=== PATIENT | male | born 1935 | race Caucasian/White ===

== ENCOUNTER → 2016-08-17 | Outpatient (CLI) | payer MEDICARE | END | disposition home or self-care (01) | LOC: RAD 11:36 → EDSTATUS 12:00 | PROVIDERS: ATTEND Otolaryngology | DX: J32.0 Chronic maxillary sinusitis (principal); J01.00 Acute maxillary sinusitis, unspecified; J34.2 Deviated nasal septum; J33.0 Polyp of nasal cavity | CPT/HCPCS: 70486 ==

== ENCOUNTER 2016-09-25 08:09 | Day surgery (SDC) | payer MEDICARE ==
[2016-09-18 09:16] VITALS: BP 149/91
[~2016-09-25] VITALS: Ht 175.3 cm; Wt 65.5 kg
[~2016-09-25 08:09] MED LIST: APIX5TAB PO; ASCO10004 PO; CALC250T PO; CHOL500015 PO; CYAN1TAB29 PO; EPINEPHRINE TOPICAL SOLN 1 MG/ML, 30ML ONE; FENTANYL PF 250 MCG/5ML ONE; LIDOCAINE/PF 1%-EPI 1:200K, 30ML ONE; METO50TA82 PO; MIDAZOLAM 1 MG/ML, 2ML ONE; MULT-717 PO; OMEG-133 PO; TAMS0.4C2 PO
[2016-09-25] MEDS ORDERED: LACTATED RINGERS 1,000 ML IV SCH (08:40)
[2016-09-25] MEDS ORDERED: SUCCINYLCHOLINE 20 MG/ML, 10ML ONE ×2 (08:46)
[2016-09-25] MEDS ORDERED: GLYCOPYRROLATE 0.2MG/1ML ONE (08:46)
[2016-09-25] MEDS ORDERED: EPHEDRINE 50 MG/ML, 1ML ONE ×2 (08:46)
[2016-09-25] MEDS ORDERED: DEXAMETHASONE 4 MG/ML, 1ML ONE ×2 (08:46)
[2016-09-25] MEDS ORDERED: NEOSTIGMINE 1 MG/ML, 10ML ONE ×2 (08:46)
[2016-09-25] MEDS ORDERED: PROPOFOL 10 MG/ML, 20ML ONE ×2 (08:46)
[2016-09-25] MEDS ORDERED: PHENYLEPHRINE 10 MG/ML ONE ×2 (08:46)
[2016-09-25] MEDS ORDERED: ONDANSETRON 2MG/ML, 2ML ONE ×2 (08:46)
[2016-09-25] MEDS ORDERED: ROCURONIUM 10 MG/ML ONE ×2 (08:46)
[2016-09-25] MEDS ORDERED: LIDOCAINE 1%, 2ML SQ PRN (09:00)
[2016-09-25] MEDS ORDERED: hydrALAzine 20 MG/ML, 1ML IV PRN (10:00)
[2016-09-25] MEDS ORDERED: HYDROmorphone 1 MG/ML, 1ML IV PRN (10:00)
[2016-09-25] MEDS ORDERED: OXYcodone 5 MG/5 ML ORAL.SOL UDC PO PRN (10:00)
[2016-09-25] MEDS ORDERED: FENTANYL PF 100 MCG/2ML IV PRN (10:00)
[2016-09-25] MEDS ORDERED: LABETALOL 5MG/ML, 20ML IV PRN (10:00)
[2016-09-25] MEDS ORDERED: ALBUTEROL SULFATE 2.5 MG/3 ML NPPB PRN (10:00)
[2016-09-25] MEDS ORDERED: ACETAMINOPHEN 325 MG TABLET PO PRN (10:00)
[2016-09-25] MEDS ORDERED: ONDANSETRON 2MG/ML, 2ML IVPush PRN (10:00)
[2016-09-25] MEDS ORDERED: EPHEDRINE 50 MG/ML, 1ML IVPush PRN (10:00)
[2016-09-25] MEDS ORDERED: METOPROLOL 1 MG/ML, 5ML IV PRN (10:00)
[2016-09-25] MEDS ORDERED: PROMETHAZINE 25 MG/ML, 1ML IV PRN (10:00)
== END 2016-09-25 11:30 ==
LOC: OUT 08:09
PROVIDERS: ATTEND Otolaryngology
DX: J32.9 Chronic sinusitis, unspecified (principal); J33.8 Other polyp of sinus; J34.89 Other specified disorders of nose and nasal sinuses; I10 Essential (primary) hypertension
CPT/HCPCS: 31237; 31254; 31256; 88304; J0330; J1100; J2250; J2370; J2405; J2704; J2710; J3010; J3490; J7120

== ENCOUNTER → 2017-07-30 | Outpatient (CLI) | payer MEDICARE ==
[~2017-07-30] MED LIST changes: -EPINEPHRINE TOPICAL SOLN 1 MG/ML, 30ML ONE; -FENTANYL PF 250 MCG/5ML ONE; -LIDOCAINE/PF 1%-EPI 1:200K, 30ML ONE; -MIDAZOLAM 1 MG/ML, 2ML ONE
== END ==
LOC: CFH 10:17
PROVIDERS: ATTEND Nurse Practitioner Family
DX: I42.9 Cardiomyopathy, unspecified (principal)
CPT/HCPCS: 93306

== ENCOUNTER → 2017-10-23 | Outpatient (CLI) | payer MEDICARE | END | disposition home or self-care (01) | LOC: ROC 07:39 | PROVIDERS: ATTEND Radiology Radiation Oncology | DX: C85.91 Non-Hodgkin lymphoma, unspecified, lymph nodes of head, face, and neck (principal) | CPT/HCPCS: 99213; G0463 ==

== ENCOUNTER → 2017-11-18 | Outpatient (CLI) | payer MEDICARE ==
[~2017-11-18] MED LIST changes: +OMNIPAQUE 350 MG/ML, 75ML BOTTLE ONE
== END | disposition home or self-care (01) ==
LOC: CFH 13:33
PROVIDERS: ATTEND Radiology Radiation Oncology
DX: C85.91 Non-Hodgkin lymphoma, unspecified, lymph nodes of head, face, and neck (principal); C11.2 Malignant neoplasm of lateral wall of nasopharynx; M50.30 Other cervical disc degeneration, unspecified cervical region; Z92.3 Personal history of irradiation
CPT/HCPCS: 70487; Q9967

== ENCOUNTER → 2018-02-25 | Outpatient (CLI) | payer MEDICARE ==
[~2018-02-25] MED LIST changes: +OMNIPAQUE 350 MG/ML, 150 ML BOTTLE ONE; -OMNIPAQUE 350 MG/ML, 75ML BOTTLE ONE
== END | disposition home or self-care (01) ==
LOC: CFH 09:41
PROVIDERS: ATTEND Internal Medicine
DX: E27.8 Other specified disorders of adrenal gland (principal); J84.10 Pulmonary fibrosis, unspecified
CPT/HCPCS: 70487; 70491; 71260; 74177; 82565; Q9967